=== PATIENT | female | born 1985 | race Two or more races ===

== ENCOUNTER 2017-06-26 02:33 | Emergency (ER) | payer MEDICAID ==
[~2017-06-26] VITALS: Ht 167.6 cm; Wt 83.5 kg
[~2017-06-26 02:33] MED LIST: FER300 PO; NORCO1 TA2 PO; STOOL SOFTENER100 MG PO
[2017-06-26 02:57] VITALS: Ht 167.6 cm; Wt 83.5 kg
[2017-06-26 07:19] VITALS: BP 100/76
== END 2017-06-26 07:19 | disposition home or self-care (01) ==
LOC: ED 02:33
DX: A63.0 Anogenital (venereal) warts (principal); F17.210 Nicotine dependence, cigarettes, uncomplicated; F12.10 Cannabis abuse, uncomplicated; J45.909 Unspecified asthma, uncomplicated
CPT/HCPCS: 99406; J1885

== ENCOUNTER 2017-09-05 22:06 | Emergency (ER) | payer MEDICAID ==
[~2017-09-05] VITALS: Ht 167.6 cm; Wt 81.2 kg
[2017-09-05 22:28] VITALS: BP 157/100
== END 2017-09-05 23:31 | disposition home or self-care (01) ==
LOC: ED 22:06
DX: S63.91XA Sprain of unspecified part of right wrist and hand, initial encounter (principal); Y04.1XXA Assault by human bite, initial encounter; Y93.89 Activity, other specified; Y92.89 Other specified places as the place of occurrence of the external cause; Y99.8 Other external cause status

== ENCOUNTER 2018-08-29 11:49 | Emergency (ER) | payer SELFPAY ==
[~2018-08-29] VITALS: Ht 165.1 cm; Wt 77.1 kg
[2018-08-29 11:50] VITALS: BP 124/73; Ht 165.1 cm; Wt 77.1 kg
== END 2018-08-29 13:19 | disposition other institution (70) ==
LOC: ED 11:49
DX: N93.9 Abnormal uterine and vaginal bleeding, unspecified (principal); N39.0 Urinary tract infection, site not specified; J45.909 Unspecified asthma, uncomplicated; Z90.49 Acquired absence of other specified parts of digestive tract

== ENCOUNTER 2018-08-29 11:49 | Emergency (ER) | payer OTHER | END 2018-08-29 13:19 | disposition other institution (70) | LOC: ED 11:49 | DX: Z02.89 Encounter for other administrative examinations (principal) ==

== ENCOUNTER 2020-03-13 02:56 | Emergency (ER) | payer BC ==
[~2020-03-13] VITALS: Ht 165.1 cm; Wt 93.4 kg
[2020-03-13 02:59] VITALS: Ht 165.1 cm; Wt 93.4 kg
[2020-03-13 03:36] VITALS: BP 135/86
== END 2020-03-13 03:28 | disposition left against medical advice (07) ==
LOC: ED 02:56
DX: Z53.21 Procedure and treatment not carried out due to patient leaving prior to being seen by health care provider (principal)